=== PATIENT | female | born 1995 | race Two or more races ===

== ENCOUNTER 2016-07-26 21:35 | Emergency (ER) | payer OTHER ==
[~2016-07-26] VITALS: Ht 170.2 cm; Wt 61.2 kg
[2016-07-26 21:37] VITALS: BP 125/66
[2016-07-26] MEDS ORDERED: IBUPROFEN 400 MG TABLET ONE (21:40)
[2016-07-26] MEDS ORDERED: predniSONE 20 MG TABLET ONE (21:40)
[2016-07-26] MEDS ORDERED: ATOM40CA PO (21:42)
[2016-07-26] MEDS ORDERED: ALBU8.5H2 INH (21:42)
[2016-07-26] MEDS ORDERED: ALBUTEROL FS 2.5 MG/3 ML VIAL.NEB ONE (21:43)
[2016-07-26] MEDS ORDERED: IPRATROPIUM NEB FS 0.5 MG/2.5 ML AMPUL.NEB ONE (21:43)
[2016-07-26] MEDS ORDERED: ALBUTEROL FS 2.5 MG/3 ML VIAL.NEB NEB ONE (22:00)
[2016-07-26] MEDS ORDERED: IPRATROPIUM NEB FS 0.5 MG/2.5 ML AMPUL.NEB NEB ONE (22:00)
[2016-07-26] MEDS ORDERED: predniSONE 20 MG TABLET PO ONE (22:00)
[2016-07-26] MEDS ORDERED: IBUPROFEN 400 MG TABLET PO ONE (22:00)
== END 2016-07-26 22:11 | disposition home or self-care (01) ==
LOC: ER 21:37
DX: J20.9 Acute bronchitis, unspecified (principal); F90.9 Attention-deficit hyperactivity disorder, unspecified type
CPT/HCPCS: 94640; 99283; A4606; J7512; Z7610

== ENCOUNTER 2017-02-03 13:38 | Emergency (ER) | payer OTHER ==
[~2017-02-03] VITALS: Ht 170.2 cm; Wt 63.5 kg
[~2017-02-03 13:38] MED LIST: ALBU8.5H2 INH; ATOM40CA PO
--- NOTE | 2017-02-03 13:40 | NUR ---
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 PER PT HR 155, NAD NOTED, VSS, RESP EVEN AND UNLABORED. AT BS. EKG DONE.
[2017-02-03] MEDS ORDERED: IV NS 0.9% 1,000 ML BAG IV ONE (14:00)
[2017-02-03 14:05] LABS: BASOPHILS % (AUTO) 0.3 % (0.0-2.0); EOSINOPHILS # (AUTO) 0.1 /CMM (0.0-0.7); EOSINOPHILS % (AUTO) 0.8 % (0.0-6.0); HEMATOCRIT 38 % (33-45); HEMOGLOBIN 13.1 g/dL (11.5-14.8); LYMPHOCYTES # (AUTO) 1.5 /CMM (0.8-4.8); LYMPHOCYTES % (AUTO) 17.4 % (20.0-44.0); MEAN CORPUSCULAR HEMOGLOBIN 32 PG (26.0-33.0); MEAN CORPUSCULAR HGB CONC 35 g/dl (31.0-36.0); MEAN CORPUSCULAR VOLUME 91 fL (82-100); MONOCYTES # (AUTO) 0.6 /CMM (0.1-1.30); MONOCYTES % (AUTO) 6.9 % (2.0-12.0); NEUTROPHILS # (AUTO) 6.2 /CMM (1.8-8.9); NEUTROPHILS % (AUTO) 74.6 % (43.0-81.0); PLATELET COUNT (AUTO) 200 /CMM (150-450); RDW COEFFICIENT OF VARIATION 12.3 (11.5-15.0); RED BLOOD CELL COUNT(AUTO) 4.13 MIL/uL (4.0-5.2); WHITE BLOOD COUNT (AUTO) 8.4 K/uL (4.3-11.0)
[2017-02-03 14:15] LABS: CALCIUM, SERUM 9.1 mg/dL (8.5-10.1); CREATININE 0.7 mg/dL (0.6-1.3); POTASSIUM 3.6 mmol/L (3.5-5.1)
[2017-02-03 15:14] LABS: APPEARANCE,URINE Clear (CLEAR); BILIRUBIN,URINE Negative (NEGATIVE); BLOOD, URINE Negative Ery/uL (NEGATIVE); COLOR,URINE Yellow (YELLOW); KETONES,URINE Trace (NEGATIVE); LEUKOCYTE ESTERASE ,URINE Negative (NEGATIVE); NITRITE, URINE Negative (NEGATIVE); PROTEIN,URINE Negative (NEGATIVE); UGLUCOSE Negative (NEGATIVE); UROBILINOGEN,URINE 0.2 EU/dL (0.2)
[2017-02-03 15:23] LABS: BACTERIA,URINE Few /HPF (None Seen); RBC,URINE NONE SEEN /HPF (0-2); SQUAMOUS EPITHELIAL CELL,UR Few /HPF (None Seen); WBC,URINE 0-2 /HPF (0-3)
--- NOTE | 2017-02-03 16:32 | NUR ---
Patient discharged to home in stable condition. Written and verbal after care instructions given. Patient verbalizes understanding of instruction.IV removed. Catheter intact and site benign. Pressure and 4x4 applied to site. No bleeding noted.
[2017-02-03 16:33] VITALS: BP 132/52
== END 2017-02-03 16:34 | disposition home or self-care (01) ==
LOC: ER 13:39
DX: O99.282 Endocrine, nutritional and metabolic diseases complicating pregnancy, second trimester (principal); O99.342 Other mental disorders complicating pregnancy, second trimester; O99.612 Diseases of the digestive system complicating pregnancy, second trimester; E86.0 Dehydration; E05.90 Thyrotoxicosis, unspecified without thyrotoxic crisis or storm; F90.9 Attention-deficit hyperactivity disorder, unspecified type; K59.00 Constipation, unspecified; Z3A.15 15 weeks gestation of pregnancy
CPT/HCPCS: 36415; 76805; 80048; 81001; 84439; 84443; 85025; 93005; 96360; 99285; A4606; J7030 ×2; Z7610; 81000-TC

== ENCOUNTER 2018-10-04 21:36 | Emergency (ER) | payer BC, OTHER ==
[~2018-10-04] VITALS: Ht 170.2 cm; Wt 74.8 kg
[~2018-10-04 21:36] MED LIST changes: -ALBU8.5H2 INH; +ALBU8.5H8 INH
--- NOTE | 2018-10-04 21:47 | NUR ---
PT PRESENTED TO THE ER WITH A C/O RUQ INTERMITTENT ABD PAIN SINCE NOON. PT STATED THAT SHE HAD 3 EPISODES OF SHARP INTERMITTENT PAIN. PT STATED THAT HER RUQ IS TENDER TO PALPATION. PT IS UNABLE TO GIVE A URINE SAMPLE AT THIS TIME.
[2018-10-04] MEDS: IV NS 0.9% 1,000 ML BAG IV ONE (22:00)
[2018-10-04 22:04] LABS: BASOPHILS # (AUTO) 0.1 /CMM (0.0-0.2); BASOPHILS % (AUTO) 0.7 % (0.0-2.0); EOSINOPHILS % (AUTO) 1.2 % (0.0-6.0); HEMATOCRIT 41 % (33-45); HEMOGLOBIN 13.6 g/dL (11.5-14.8); LYMPHOCYTES # (AUTO) 2.7 /CMM (0.8-4.8); LYMPHOCYTES % (AUTO) 37.2 % (20.0-44.0); MEAN CORPUSCULAR HGB CONC 33 g/dl (31.0-36.0); MEAN CORPUSCULAR VOLUME 91 fL (82-100); MONOCYTES # (AUTO) 0.6 /CMM (0.1-1.30); MONOCYTES % (AUTO) 7.9 % (2.0-12.0); NEUTROPHILS # (AUTO) 3.9 /CMM (1.8-8.9); PLATELET COUNT (AUTO) 229 /CMM (150-450); RED BLOOD CELL COUNT(AUTO) 4.51 MIL/uL (4.0-5.2); WHITE BLOOD COUNT (AUTO) 7.3 K/uL (4.3-11.0)
[2018-10-04 22:11] LABS: CREATININE 0.8 mg/dL (0.6-1.3); POTASSIUM 3.3 mmol/L (3.5-5.1)
[2018-10-04 22:17] LABS: ALBUMIN 3.9 g/dL (3.4-5.0); BILIRUBIN,DIRECT 0.1 mg/dL (0.0-0.2); BILIRUBIN,TOTAL 0.5 mg/dL (0.2-1.0); TOTAL PROTEIN, SERUM 7.5 g/dL (6.4-8.2)
--- NOTE | 2018-10-04 22:24 | NUR ---
URINE SAMPLE OBTAINED AND SENT TO LAB.
[2018-10-04] MEDS ORDERED: POTASSIUM CHLORIDE 20 MEQ TAB.PRT.SR PO ONE (22:40)
[2018-10-04] MEDS ORDERED: POTASSIUM CHLORIDE 10 MEQ TABLET.SA ONE (22:41)
[2018-10-04] MEDS: POTASSIUM CHLORIDE 20 MEQ TAB.PRT.SR PO ONE (22:43)
[2018-10-04 22:49] LABS: APPEARANCE,URINE Clear (CLEAR); BILIRUBIN,URINE Negative (NEGATIVE); BLOOD, URINE Moderate Ery/uL (NEGATIVE); COLOR,URINE Yellow (YELLOW); KETONES,URINE Trace (NEGATIVE); LEUKOCYTE ESTERASE ,URINE Negative (NEGATIVE); NITRITE, URINE Negative (NEGATIVE); PROTEIN,URINE 30 mg/dl (NEGATIVE); UGLUCOSE Negative (NEGATIVE); UROBILINOGEN,URINE 0.2 EU/dL (0.2)
--- NOTE | 2018-10-04 23:00 | NUR ---
PT APPEARS TO BE RESTING COMFORTABLY WITH NO S/S OF PAIN OR DISTRESS. WILL CONTINUE TO MONITOR THE PT.
--- NOTE | 2018-10-04 23:11 | NUR ---
US TECH ARRIVED AND IS AT THE BEDSIDE.
[2018-10-04 23:27] LABS: BACTERIA,URINE Rare /HPF (None Seen); RBC,URINE 21-50 /HPF (0-2); SQUAMOUS EPITHELIAL CELL,UR Rare /HPF (None Seen); WBC,URINE 0-2 /HPF (0-3)
--- NOTE | 2018-10-04 23:45 | NUR ---
PT AMBULATED TO THE BATHROOM WITH A STEADY GAIT. NO S/S OF PAIN OR DISTRESS.
--- NOTE | 2018-10-05 00:02 | NUR ---
CASEY WINSTON FOR ULTRASOUND READ.
--- NOTE | 2018-10-05 00:11 | NUR ---
CALLING TISH REGARDING US READ. US TO BE PLACED ON THE HOTLINE.
--- NOTE | 2018-10-05 01:17 | NUR ---
IV removed. Catheter intact and site benign. Pressure and 4x4 applied to site. No bleeding noted. Patient discharged to home in stable condition. Written and verbal after care instructions given. Patient verbalizes understanding of instruction. PT REC'D A COPY OF THE US FINDINGS AND ALL LABS. PT REC'D A DISK OF IMAGING.
[2018-10-05 01:21] VITALS: BP 118/72
== END 2018-10-05 01:22 | disposition home or self-care (01) ==
LOC: ER 21:36
DX: R10.11 Right upper quadrant pain (principal); F90.9 Attention-deficit hyperactivity disorder, unspecified type; Z79.899 Other long term (current) drug therapy
CPT/HCPCS: 36415; 76705; 80048; 80076; 81001; 83690; 84703; 85025; 87086; 99284; J7030; 81000-TC